=== PATIENT | female | born 1975 | race Caucasian/White ===

== ENCOUNTER → 2021-08-16 | Outpatient (CLI) | payer OTHER ==
[~2021-08-16] MED LIST: FLUT220HFA IH; IBUP-2070 PO
== END | disposition home or self-care (01) ==
LOC: LABPV 11:07
PROVIDERS: ATTEND Internal Medicine Critical Care Medicine
DX: Z01.89 Encounter for other specified special examinations (principal)
CPT/HCPCS: 85651; 86038; 86140; 86200; 86430